=== PATIENT | female | born 1960 | race Caucasian/White ===

== ENCOUNTER 2019-01-12 10:31 | Day surgery (SDC) | payer BC ==
[2019-01-07 11:22] VITALS: BMI 45.5
--- NOTE | 2019-01-12 09:35 | HP ---
Satellite [facility] - Chief Complaint Chief Complaint: left knee pain - Past Medical History Allergies/Adverse Reactions: Allergies Allergy/AdvReac Type Severity Reaction Status Date / Time metoprolol succinate Allergy Severe Difficulty Verified 01/07/19 11:11 [From Toprol XL] Breathing Penicillins Allergy Severe Swelling Verified 01/07/19 11:11 shellfish derived Allergy Severe Difficulty Verified 01/07/19 11:11 Breathing - Current Medications Current Medications: Home Medications Medication Instructions Recorded Atenolol [Tenormin -] 50 mg PO DAILY 09/12/15 Desloratadine [Clarinex] 5 mg PO DAILY 09/12/15 Hydrochlorothiazide [Hctz -] 12.5 mg PO DAILY 09/12/15 Lisinopril [Prinivil -] 2.5 mg PO DAILY 09/12/15 Cholecalciferol (Vitamin D3) 10,000 unit PO DAILY 01/07/19 [Vitamin D3] Ferrous Sulfate 325 mg PO DAILY 01/07/19 Magnesium 250 mg PO DAILY 01/07/19 Multivitamin [Multiple Vitamins] 1 each PO DAILY 01/07/19 Satellite Physical Exam - Physical Examination General Appearance: Well Nourished, Well Developed, Alert & Oriented x3 ENT: Clear Lung: Normal air movement Heart: Regular rate & rhythm Extremities: Other (left knee- + swelling, + ttp medially, decr rom, nvi xrays show grade 4 medial compartment djd) Neurological: Intact, Alert, Oriented Satellite Impression/Plan - Impression/Plan Impression: left knee medial djd Operative Procedure: left medial domitila ukr Date to be Performed: 01/12/19
[2019-01-12] MEDS ORDERED: GELATIN, ABSORBABLE 100 EACH SPONGE TP ONE ×2 (10:59→15:36)
[2019-01-12] MEDS ORDERED: THROMBIN (RECOMBINANT) 5,000 UNIT VIAL TP ONE (10:59)
[2019-01-12] MEDS ORDERED: TRANEXAMIC ACID 1000 MG/10 ML VIAL IVPUSH ONE (11:11)
[2019-01-12] MEDS ORDERED: CEFAZOLIN 2 GM in DEXTROSE 5%-WATER - 50 ML IVPB ONE (11:11)
[2019-01-12] MEDS: CELECOXIB 200 MG CAPSULE PO ONE (11:19)
[2019-01-12] MEDS: GABAPENTIN 300 MG CAPSULE (FP) PO ONE (11:19)
[2019-01-12] MEDS: oxyCODONE HCL 10 MG SUSTAINED ACTING TABLET PO ONE (11:19)
[2019-01-12] MEDS ORDERED: ceFAZolin SODIUM 1 GM VIAL ONE (13:00)
[2019-01-12] MEDS ORDERED: ROPIVICAINE 0.2%/MORPH PF/KETOROLAC - 51ML DISP.SYRINGE IA ONE ×2 (13:15→15:59)
[2019-01-12] MEDS ORDERED: BUPIVACAINE HCL/PF (5 MG/ML) 30 ML VIAL IJ ONE (13:31)
[2019-01-12] MEDS ORDERED: MIDAZOLAM HCL 2 MG/2 ML SINGLE DOSE VIAL ONE ×2 (13:31→14:33)
[2019-01-12] MEDS ORDERED: PROPOFOL 20 ML ONE ×3 (14:22→14:28)
[2019-01-12] MEDS ORDERED: THROMBIN (BOVINE) 5,000 UNIT VIAL TP ONE (15:36)
[2019-01-12] MEDS ORDERED: oxyCODONE HCL 5 MG TABLET PO PRN ×2 (16:05)
[2019-01-12] MEDS ORDERED: PROMETHAZINE HCL 25 MG/1 ML VIAL IVPUSH PRN (16:05)
[2019-01-12] MEDS ORDERED: ONDANSETRON 4 MG/2 ML VIAL IVPUSH PRN ×2 (16:05→16:23)
[2019-01-12] MEDS ORDERED: MAG HYDROX/AL HYDROX/SIMETH 30 ML UNIT-DOSE CUP PO PRN (16:23)
--- NOTE | 2019-01-12 16:26 | OP ---
Operative Note - Note: Operative Date: 01/12/19 (hayley) Pre-Operative Diagnosis: left knee medial djd Operation: left medial domitila ukr Post-Operative Diagnosis: Same as Pre-op Surgeon: Anton Ochoa Software Test Developer: Oren Santizo Anesthesiologist/NUCLEAR MEDICINE PHYSICIAN: Josh Sage Anesthesia: Spinal, Local Specimens Removed: bone fragments Estimated Blood Loss (mls): 150 Operative Report Dictated: Yes
[2019-01-12] MEDS ORDERED: LACTATED RINGERS SOLUTION 1,000 ML IV SCH (16:30)
--- NOTE | 2019-01-12 17:21 | CON.CARD ---
Consult Consult Specialty:: cardio Reason for Consultation:: cardio f/u postop - History of Present Illness Chief Complaint: postop domitila knee History of Present Illness: 58 F s/p Domitila surgery of knee today. 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 follows with PM clinic at [facility] (darby yin)--function stable on last check recent, per pt (reliable historian). had echo not long ago at [facility]--told normal. denies h/o CAD or CHF. has has no recurrent palpitations/tachyarrhythmia since her ablation. follows with dr faith in my practice for PMD. PMH: obesity HTN - Alcohol/Substance Use Hx Alcohol Use: No - Smoking History Smoking history: Never smoked Have you smoked in the past 12 months: No Home Medications - Allergies Allergies/Adverse Reactions: Allergies Allergy/AdvReac Type Severity Reaction Status Date / Time metoprolol succinate Allergy Severe Difficulty Verified 01/12/19 11:23 [From Toprol XL] Breathing Penicillins Allergy Severe Swelling Verified 01/12/19 11:23 shellfish derived Allergy Severe Difficulty Verified 01/12/19 11:23 Breathing - Home Medications Home Medications: Ambulatory Orders Atenolol [Tenormin -] 50 mg PO DAILY 09/12/15 Desloratadine [Clarinex] 5 mg PO DAILY 09/12/15 Hydrochlorothiazide [Hctz -] 12.5 mg PO DAILY 09/12/15 Lisinopril [Prinivil -] 2.5 mg PO DAILY 09/12/15 Cholecalciferol (Vitamin D3) [Vitamin D3] 10,000 unit PO DAILY 01/07/19 Ferrous Sulfate 325 mg PO DAILY 01/07/19 Magnesium 250 mg PO DAILY 01/07/19 Multivitamin [Multiple Vitamins] 1 each PO DAILY 01/07/19 Aspirin [ASA -] 325 mg PO DAILY@0800 tablet 01/12/19 Oxycodone HCl/Acetaminophen [Percocet 5-325 mg Tablet -] 1 - 2 tab PO Q6H #50 tab MDD 8 01/12/19 Family Disease History - Family Disease History Family History: Denies (no known CMP) Review of Systems - Review of Systems Constitutional: denies: Chills, Fever Eyes: denies: Eye Pain HENT: denies: Nasal Congestion Neck: denies: Stiffness Cardiovascular: denies: Palpitations Respiratory: denies: Orthopnea, PND Gastrointestinal: denies: Diarrhea, Rectal Bleeding Genitourinary: denies: Burning, Hematuria Musculoskeletal: denies: Muscle Pain Integumentary: denies: Rash Neurological: denies: Numbness, Seizure, Syncope Endocrine: denies: Excessive Sweating Hematology/Lymphatic: denies: Excessive Bleeding Vital Signs: Vital Signs Temperature 96.8 F L 01/12/19 16:32 Pulse Rate 60 01/12/19 17:00 Respiratory Rate 16 01/12/19 17:00 Blood Pressure 140/60 01/12/19 17:00 O2 Sat by Pulse Oximetry (%) 98 01/12/19 17:00 Constitutional: Yes: No Distress, Obese Eyes: No: Sclera Icterus HENT: No: Nasal Congestion Neck: No: Decreased ROM Respiratory: Yes: CTA Bilaterally. No: Accessory Muscle Use, Rales, Wheezes Gastrointestinal: Yes: Normal Bowel Sounds. No: Distention, Hepatomegaly, Palpable Mass, Tenderness Cardiovascular: Yes: Regular Rate and Rhythm (soft intensity) JVD: No Carotid Bruit: No PMI: Non-Displaced Heart Sounds: Yes: S1, S2. No: Gallop Murmur: No: Systolic Murmur, Diastolic Murmur Musculoskeletal: Yes: Other (No kyphosis) Extremities: No: Cool, Cyanosis Edema: No (SCDs) Peripheral Pulses: 2+ Left Carotid, 2+ Right Carotid, 2+ Left Doralis Pedis, 2+ Right Dorsalis Pedis Integumentary: No: Jaundice Neurological: Yes: Alert, Oriented (x3) Psychiatric: No: Agitated Assessment/Plan ECG 12/15/18 (in chart): NSR, v-paced HTN: -bp controlled -continue home atenolol, lisinopril regimen WPW s/p ablation, s/p PPM (pacer-dependent): -stable v-paced rhythm on bedside monitor in PACU -routine f/u in outpatient device clinic at [facility]
[2019-01-12] MEDS ORDERED: ACETAMINOPHEN 325 MG TABLET (FP) ONE (17:23)
[2019-01-12] MEDS ORDERED: ACETAMINOPHEN 325 MG TABLET (FP) PO ONE (17:27)
[2019-01-12] MEDS: ACETAMINOPHEN 325 MG TABLET (FP) PO SCH ×2 (19:17→22:34)
[2019-01-12] MEDS: CEFAZOLIN 2 GM/D5W 2 GM/50 ML ML IVPB SCH (22:33)
[2019-01-12] MEDS: oxyCODONE HCL 10 MG SUSTAINED ACTING TABLET PO SCH (22:33)
[2019-01-12] MEDS: SENNOSIDES/DOCUSATE COMBO (SENNA PLUS) TABLET (UD) PO SCH (22:34)
[2019-01-13] MEDS: CEFAZOLIN 2 GM/D5W 2 GM/50 ML ML IVPB SCH (01:05)
[2019-01-13] MEDS: ACETAMINOPHEN 325 MG TABLET (FP) PO SCH ×2 (04:34→10:41)
--- NOTE | 2019-01-13 06:48 | SPEC ---
DATE OF OPERATION: 01/12/2019 PREOPERATIVE DIAGNOSIS: Left knee medial compartment osteoarthritis. POSTOPERATIVE DIAGNOSIS: Left knee medial compartment osteoarthritis. PROCEDURE: Left knee medial MAKOplasty/robotically assisted partial knee replacement. SURGEON: Sumeet Luis MD SOFTWARE ENGINEERING MANAGER: LEE Young FORMING TUBE SELECTOR: Josh Morillo CRNA ANESTHESIA: Regional block with sedation. DRAINS: None. COMPLICATIONS: None. SPECIMENS: Bone and cartilage, left knee. FLUID REPLACEMENT: PlasmaLyte, 1000 mL. BLOOD LOSS: Minimal. BLOOD GIVEN: None. INDICATIONS: The patient is 58-year-old female with a preoperative diagnosis of significant recurrent pain in the medial aspect of the left knee. After she was indicated for a left knee partial knee replacement/medial MAKOplasty, we had a full conversation about the potential risks, complications, alternatives and benefits of surgery versus nonsurgical treatment. All questions and concerns were addressed. The patient understands that there is a lifelong risk of infection. Patient may need a revision surgery which would require removal of the implant. Patient may require conversion to a total knee replacement. Patient may have some continued pain from osteoarthritis in either the patellofemoral joint or the lateral compartment. DESCRIPTION OF PROCEDURE: The patient was brought into the operating room, peripheral IV placed and IV sedation given. One gram of IV Ancef was given. Spinal anesthesia was induced. Patient was placed into the supine position. Ample Webril was placed on the left upper thigh. Tourniquet was applied. The left lower extremity was prepped and draped in the usual sterile fashion. The preoperative CT scan, the computer, and the robot were brought into position. The two femoral Constance pins were placed by making the appropriate measurement and then using a No. 15 scalpel blade to cut through the skin and a hemostat to dissect down to the anterior aspect of the femur and the anterior aspect of the tibia. The tibia and femoral arrays were placed. A 3.5-inch incision was made along the medial aspect of the knee joint, patella and proximal tibia. Subcutaneous hemostasis was achieved with the Bovie cautery. Dissection was done with the Bovie down to the knee retinaculum which was incised, the thick synovial fluid evacuated. There were some osteophytes on the medial aspect of the patella which were debrided with the rongeur. After the patelloplasty, some small bleeders were cauterized and Hohmann retractors were placed to retract the medial soft tissues on the proximal aspect of the tibia and some mild amount of periosteal dissection was performed. Once this was done, exposing the proximal and medial tibia and the proximal and medial femur, the two positioning buttons were placed. Next, using the green sensor, we began positioning with both the medial and lateral malleolus and then putting the knee through progressively larger circles in a clockwise direction, gaining location data with the femoral and tibial array. Next, we did a medial meniscectomy and correlated the femoral and tibial positions with the positioner and the buttons. Next, we registered 40 points of position with a combination of the handheld registration device and the arrays in the computer. Once this was done, we put the knee through a range of motion. The patient had a small varus forming and a small flexion contraction both of which were corrected, taking multiple measurements including at 0 degrees, 30 degrees, 60 degrees, 90 degrees and 120 degrees. Once this was done and we evaluated the flexion and extension tension graphs and it was seen to be quite good and I was quite happy with the tension throughout the full range of motion. No other adjustments were needed to be made. This was a size No. 3 medial femur and size No. 3 medial tibial component with an 8mm polyethylene tray. We locked in the prosthesis size combination, and began our resection. The robot was brought into place. Registration was done. Using the standard Makoplasty technique, I was able to use a round yudith to take out the appropriate amount of bone from the distal femur and the proximal tibia. The area was copiously irrigated and washed out. A rongeur was used to take away some marginal osteophytes and overhanging cartilage. It all looked quite good; it was quite smooth. I saw no reason for any additional resection. We then put the leg up, applied the tourniquet to 300 mmHg. We used Thrombin-soaked Gelfoam on the bony beds for hemostasis and then a dry lap pad. We mixed one bag of Simplex cement. We opened the real prosthesis, which would be the Makoplasty medial femur No. 4 and the medial Makoplasty tibial No. 5. These were precoated on their undersurface with cement. The Thrombin-soaked Gelfoam was removed, the area copiously irrigated and washed out, dried, and cement placed into the holes and onto the bone, first of the femur. The femoral component was applied, tapped into place. The excess cement was removed and then the same procedure for the tibia. Once the excess cement was all removed, I put in a No. 8 trial polyethylene tray and put the knee into extension for more compression. I was able to put the knee through a full range of motion, achieving full extension, full flexion well past 100 degrees overall. I was quite happy with the position of the prosthesis. We let it dry. Excess cement was removed. Again, it was tested, seen to be quite good and therefore, a real polyethylene tray was placed in the knee. Once this was done, the area was copiously irrigated and washed out again. A Hemovac drain was placed. The deep knee retinaculum was repaired with No. 1 Tycron suture, 2-0 Vicryl sutures to close the deep dermal layer. Final skin reapproximation was done with a running subcuticular 3-0 V-Loc suture. 3-0 nylon was used to close the proximal and distal holes where the Steinmann pins were for the femoral and tibial arrays. The area was copiously irrigated and washed out, covered in Xeroform. A cocktail of Morphine and Bupivacaine was injected in and around the soft tissue of the knee. The main incision was covered with Steri strips as well. The area was also covered with 4 x 4 gauze, ample Webril, ABDs, and Josh bandages. The tourniquet was taken down after only being up for minutes. Total operative time was about 1 hour. There were no complications during the case. The patient tolerated the procedure quite well and was brought to the regular recovery room in stable condition. SUMEET LUIS M.D. [id number]
[2019-01-13] MEDS ORDERED: ASPIRIN 325 MG TABLET PO SCH (08:00)
[2019-01-13] MEDS: oxyCODONE HCL 10 MG SUSTAINED ACTING TABLET PO ONE (08:20)
[2019-01-13] MEDS: GABAPENTIN 300 MG CAPSULE (FP) PO ONE (08:20)
[2019-01-13] MEDS: CELECOXIB 200 MG CAPSULE PO ONE (08:20)
[2019-01-13 08:58] VITALS: BP 120/51; PULSE 71; TEMP 98.5
[2019-01-13] MEDS: oxyCODONE HCL 10 MG SUSTAINED ACTING TABLET PO SCH (09:06)
[2019-01-13] MEDS: SENNOSIDES/DOCUSATE COMBO (SENNA PLUS) TABLET (UD) PO SCH (09:09)
--- NOTE | 2019-01-13 09:35 | PN ---
Progress Note (short form) - Note Progress Note: Ortho Pt seen and examined s/p left medial domitila ukr pod #1 Selected Entries 01/13/19 08:57 Temperature 98.5 F Pulse Rate 71 Respiratory 18 Rate Blood Pressure 120/51 L dressing c/d/i, calf soft, nt rom 0-40, nvi a/p PT dvt ppx pain control d/c home today f/u in 1 week
--- NOTE | 2019-01-13 09:36 | DS ---
Physical Examination Vital Signs: Vital Signs Temperature 98.5 F 01/13/19 08:57 Pulse Rate 71 01/13/19 08:57 Respiratory Rate 18 01/13/19 08:57 Blood Pressure 120/51 L 01/13/19 08:57 O2 Sat by Pulse Oximetry (%) 94 L 01/13/19 03:00 Discharge Summary Reason For Visit: OSTEOARTHRITIS Procedures: Principal: left medial domitila ukr Hospital Course: admitted for elective left medial domitila ukr, uneventful post-op, stable for d/ c Condition: Good - Instructions Diet, Activity, Other Instructions: Post-op Instructions-Partial Knee Replacement Call the office for a follow-up appointment in 1 week - [phone] Aspirin 325mg daily for 6 weeks. Pain medication was sent into your pharmacy. Apply Graduated Compression Stockings (TEDs) to both lower extremities- remove daily for hygiene ONLY Apply Sequential Compression Device (SCDs) to both Lower extremities remove for PT and hygiene ONLY Apply cold packs to affected area for 15 minutes every 2 hours. Physical Therapist will come to your home for the first 5 days. You will be set up with outpatient PT at your first post-operative visit. Patient may ambulate as tolerated-encourage self care (at least every 2-3 hours while awake) with walker or cane Maintain Aquacel (waterproof) dressing to operative wound (will be removed by surgeon at first office visit) Shower with Aquacel dressing in place-if Aquacel integrity compromised, remove and apply dry sterile dressing and notify Orthopedist. DO NOT SHOWER unless Orthopedists approves without Aquacel dressing CONTACT THE OFFICE FOR ANY CHANGE IN YOUR CONDITION (for example-fever greater than 102 degrees, excessive bleeding from operative site, purulent drainage, severe swelling or pain) GO TO THE EMERGENCY ROOM IF THERE IS A MEDICAL EMERGENCY Knee Precautions: * Keep a rolled towel under affected heel while in bed or chair (to keep knee in extension) * Keep affected leg elevated except during mealtimes * DO NOT PLACE PILLOW UNDER AFFECTED KNEE * If you have any questions, please do not hesitate to call the office - [phone]. Referrals: Anton Ochoa MD [Staff Physician] - Disposition: VNS/HOME HEALTH CARE - Home Medications Comprehensive Discharge Medication List: Ambulatory Orders Atenolol [Tenormin -] 50 mg PO DAILY 09/12/15 Desloratadine [Clarinex] 5 mg PO DAILY 09/12/15 Hydrochlorothiazide [Hctz -] 12.5 mg PO DAILY 09/12/15 Lisinopril [Prinivil -] 2.5 mg PO DAILY 09/12/15 Cholecalciferol (Vitamin D3) [Vitamin D3] 10,000 unit PO DAILY 01/07/19 Ferrous Sulfate 325 mg PO DAILY 01/07/19 Magnesium 250 mg PO DAILY 01/07/19 Multivitamin [Multiple Vitamins] 1 each PO DAILY 01/07/19 Aspirin [ASA -] 325 mg PO DAILY@0800 tablet 01/12/19 Oxycodone HCl/Acetaminophen [Percocet 5-325 mg Tablet -] 1 - 2 tab PO Q6H #50 tab MDD 8 01/12/19
[2019-01-13] MEDS ORDERED: HYDROCHLOROTHIAZIDE 12.5 MG CAPSULE (FP) PO SCH (10:00)
[2019-01-13] MEDS ORDERED: MULTIVITAMINS (DAILY MVI) TABLET (FP) PO SCH (10:00)
[2019-01-13] MEDS ORDERED: FERROUS SO4 325 MG TABLET (FP) PO SCH (10:00)
[2019-01-13] MEDS ORDERED: PANTOPRAZOLE 40 MG TABLET (FP) PO SCH (10:00)
[2019-01-13] MEDS ORDERED: ATENOLOL 50 MG TABLET (FP) PO SCH (10:00)
[2019-01-13] MEDS ORDERED: LISINOPRIL 5 MG TABLET (FP) PO SCH (10:00)
--- NOTE | 2019-01-13 11:19 | PN ---
Progress Note (short form) - Note Progress Note: Anesthesiology Post-op 58 y.o. woman POD#1 s/p left knee MAKOplasty with regional and neuraxial anesthesia. She is sitting-up in chair, doing well. Though she has some pain with activity, pain is well-managed with medications. She is able to walk with assistance. No other complaints. VSS. 58 y.o. woman with stable post-operative course. Continue management as per primary team.
== END 2019-01-13 11:43 | disposition home health service (06) ==
LOC: FASU 10:31 → FM/S 17:58 → FASU 01-13 11:43
PROVIDERS: ATTEND Orthopaedic Surgery
PROC: 8E0YXBZ Computer Assisted Procedure of Lower Extremity (ICD-10-PCS; 2019-01-12)
PROC: 8E0Y0CZ Robotic Assisted Procedure of Lower Extremity, Open Approach (ICD-10-PCS; 2019-01-12)
PROC: 0SRD0L9 Replacement of Left Knee Joint with Medial Unicondylar Synthetic Substitute, Cemented, Open Approach (ICD-10-PCS; principal; 2019-01-12 13:30)
DX: M17.12 Unilateral primary osteoarthritis, left knee (principal)
CPT/HCPCS: 20985; 27446; C1776; S2900; 73560-TC-LT-FY; 94760; 97116-GP; 97162-GP